=== PATIENT | male | born 1975 | race Caucasian/White ===

== ENCOUNTER 2022-04-13 08:04 | Day surgery (SDC) | payer SELFPAY ==
[~2022-04-13] VITALS: Ht 175.3 cm; Wt 60.1 kg
[2022-04-13] VITALS (7 sets, daily range): BP systolic 112–138; BP diastolic 70–89; PULSE 64–112; TEMP 97.9
[2022-04-13] MEDS ORDERED: PROTONIX 40MG T40 MG PO (09:32)
--- NOTE | 2022-04-13 10:12 | NUR ---
0945-PT TO BAY 6 PER CART FROM PROCEDURE ROOM. REPORT RECEIVED. VS OBTAINED. CALL LIGHT WITHIN REACH. PT DENIES ANY NEEDS AT THIS TIME. 1000-DR RAMÍREZ IN ROOM WITH PT DISCUSSING FINDINGS. PT TOLERATING WATER. 1010-IV DC'D AT THIS TIME. DISCHARGE EDUCATION COMPLETED WITH PT AND HIS FATHER. VERBALIZED UNDERSTANDING OF HOME AND FOLLOW UP CARE. DISCHARGE PAPERWORK GIVEN TO PT. 1012-PT OFF UNIT PER WHEELCHAIR. PT DISCHARGED TO HOME WITH HIS FATHER PER PERSONAL VEHICLE.
[2022-04-13] MEDS ORDERED: MAGNESIUM250 M1 PO (14:21)
[2022-04-13] MEDS ORDERED: OSCAL 500 TAB500 MG PO (14:21)
[2022-04-13] MEDS ORDERED: PHARMASSURE ZIN50 MG PO (14:23)
--- NOTE | 2022-04-13 14:30 | NUR ---
PATIENT RETURNS TO BAY 2 PER CART AND TRANSFERS FROM CART TO RECLINER AND IS AWAKE AND ALERT. TEMP 97.9 AND ROOM AIR SATS 96%. IV FLUIDS INFUSING AND SITE IS FREE OF REDNESS. BROTHER IN THE ROOM. TAKING APPLE JUICE.
--- NOTE | 2022-04-13 14:45 | NUR ---
DR. RAMÍREZ HERE AND TALKS WITH THE PATIENT. ALL QUESTIONS ANSWERED.
--- NOTE | 2022-04-13 14:45 | NUR ---
DR. RAMÍREZ HERE AND TALKS WITH THE PATIENT. ALL QUESTIONS ANSWERED.
--- NOTE | 2022-04-13 15:00 | NUR ---
ROOM AIR SATS 99%. TOLERATES JUICE. IV DISCONTINUED.
--- NOTE | 2022-04-13 15:00 | NUR ---
ROOM AIR SATS 99%. TOLERATES JUICE. IV DISCONTINUED.
--- NOTE | 2022-04-13 15:10 | NUR ---
DISMISSAL INSTRUCTIONS GIVEN AND VOICES UNDERSTANDING OF THESE.
--- NOTE | 2022-04-13 15:10 | NUR ---
DISMISSAL INSTRUCTIONS GIVEN AND VOICES UNDERSTANDING OF THESE.
--- NOTE | 2022-04-13 15:16 | NUR ---
DISMISSAL INSTRUCTIONS GIVEN AND VOICES UNDERTANDING OF HOME CARES AND FOLLOW UP NEEDED.
--- NOTE | 2022-04-13 15:16 | NUR ---
DISMISSAL INSTRUCTIONS GIVEN AND VOICES UNDERTANDING OF HOME CARES AND FOLLOW UP NEEDED.
--- NOTE | 2022-04-13 15:19 | NUR ---
DISCHARGED TO HOME DRIVEN BY BROTHER AND TAKEN TO PRIVATE VEHICLE PER WHEELCHAIR AND ASSISTED INTO CAR.
--- NOTE | 2022-04-13 15:19 | NUR ---
DISCHARGED TO HOME DRIVEN BY BROTHER AND TAKEN TO PRIVATE VEHICLE PER WHEELCHAIR AND ASSISTED INTO CAR.
== END 2022-04-13 10:12 | disposition home or self-care (01) ==
LOC: SDCO 08:04
DX: K22.2 Esophageal obstruction (principal); K21.00 Gastro-esophageal reflux disease with esophagitis, without bleeding
CPT/HCPCS: C1726; J2704; J7030